=== PATIENT | female | born 1985 | race American Indian/Alaskan Native ===

== ENCOUNTER 2017-07-21 06:06 | Emergency (ER) | payer SELFPAY ==
--- NOTE | 2017-07-21 08:25 | Emergency Department Report ---
ED General Adult HPI - General Chief complaint: Urogenital-Female Stated complaint: BREAST PAIN Time Seen by Provider: 07/21/17 07:39 Source: patient Mode of arrival: Ambulatory Limitations: No Limitations - History of Present Illness Initial comments: This is a 32-year-old female nontoxic, well nourished in appearance, no acute signs of distress presents to the ED with c/o of left breast pain. Patient stated she is currently breast-feeding for the last 10 months and then developed a lump in the alveolar region with painful breasts. Patient denies any discharge of the breast, fever, chills, nausea, vomiting, headache, stiff neck, numbness, tingling, chest pain or shortness of breath. Patient denies any allergies or significant past medical history. She stated that she had a normal mammogram last year. MD Complaint: left breast pain -: week(s) (1) Radiation: non-radiation Severity scale (0 -10): 8 Quality: aching Consistency: constant Improves with: none Worsens with: none Associated Symptoms: denies other symptoms. denies: confusion, chest pain, cough, diaphoresis, fever/chills, headaches, loss of appetite, malaise, nausea/ vomiting, rash, seizure, shortness of breath, syncope, weakness Treatments Prior to Arrival: none - Related Data Previous Rx's Medication Instructions Recorded Last Taken Type Acetaminophen 500 mg PO Q8H PRN #30 tablet 07/21/17 Unknown Rx Clindamycin [Clindamycin CAP] 300 mg PO Q8H 7 Days cap 07/21/17 Unknown Rx Allergies Allergy/AdvReac Type Severity Reaction Status Date / Time No Known Allergies Allergy Unverified 07/21/17 06:31 ED Review of Systems ROS: Stated complaint: BREAST PAIN Other details as noted in HPI Constitutional: denies: chills, fever Eyes: denies: eye pain, eye discharge, vision change ENT: denies: ear pain, throat pain Respiratory: denies: cough, shortness of breath, wheezing Cardiovascular: denies: chest pain, palpitations Endocrine: no symptoms reported Gastrointestinal: denies: abdominal pain, nausea, diarrhea Genitourinary: denies: urgency, dysuria, discharge Musculoskeletal: denies: back pain, joint swelling, arthralgia Skin: denies: rash, lesions Neurological: denies: headache, weakness, paresthesias Psychiatric: denies: anxiety, depression Hematological/Lymphatic: denies: easy bleeding, easy bruising ED Past Medical Hx - Past Medical History Previous Medical History?: No - Surgical History Additional Surgical History: abd surgery - Social History Smoking Status: Never Smoker Substance Use Type: None - Medications Home Medications: Home Medications Medication Instructions Recorded Confirmed Last Taken Type Acetaminophen 500 mg PO Q8H PRN #30 tablet 07/21/17 Unknown Rx Clindamycin [Clindamycin CAP] 300 mg PO Q8H 7 Days cap 07/21/17 Unknown Rx ED Physical Exam - General Limitations: No Limitations General appearance: alert, in no apparent distress - Head Head exam: Present: atraumatic, normocephalic - Eye Eye exam: Present: normal appearance Pupils: Present: normal accommodation - ENT ENT exam: Present: normal exam, mucous membranes moist - Neck Neck exam: Present: normal inspection, full ROM. Absent: tenderness, meningismus - Respiratory Respiratory exam: Present: normal lung sounds bilaterally. Absent: respiratory distress, wheezes, rales, rhonchi, stridor, chest wall tenderness, accessory muscle use, decreased breath sounds, prolonged expiratory - Cardiovascular Cardiovascular Exam: Present: regular rate, normal rhythm, normal heart sounds. Absent: bradycardia, tachycardia, irregular rhythm, systolic murmur, diastolic murmur, rubs, gallop - GI/Abdominal GI/Abdominal exam: Present: soft, normal bowel sounds. Absent: distended, tenderness, guarding, rebound, rigid, diminished bowel sounds - Rectal Rectal exam: Present: deferred - Extremities Exam Extremities exam: Present: normal inspection, full ROM, normal capillary refill - Back Exam Back exam: Present: normal inspection, full ROM - Neurological Exam Neurological exam: Present: alert, oriented X3, normal gait - Psychiatric Psychiatric exam: Present: normal affect, normal mood - Skin Skin exam: Present: warm, dry, intact, normal color. Absent: rash - Other Other exam information: Left breast tender to touch. About 2 cm nodular swelling to the alveolar breast. No induration or fluctuance. No surrounding cellulitis or redness. ED Course Vital Signs 07/21/17 06:26 Temperature 98.5 F Pulse Rate 89 Blood Pressure 113/74 O2 Sat by Pulse 98 Oximetry - Reevaluation(s) Reevaluation #1: 07/21/17 08:24 Patient is speaking in full sentences with no signs of distress noted. ED Medical Decision Making - Medical Decision Making This is a 32-year-old female that presents with Lactational mastitis. Patient is stable and was examined by me. Patient received Tylenol in the ED as well as discharge. I will treat patient apparently with clindamycin. I also educated patient how to avoid these problems in the future. Patient was also instructed to apply warm compresses to the breast. Patient was referred to Follow-up with a primary care doctor in 3-5 days or if symptoms worsen and continue return to emergency room as soon as possible. At time of discharge, the patient does not seem toxic or ill in appearance. No acute signs of distress noted. Patient agrees to discharge treatment plan of care. No further questions noted by the patient. Critical care attestation.: If time is entered above; I have spent that time in minutes in the direct care of this critically ill patient, excluding procedure time. ED Disposition Clinical Impression: Nonpurulent mastitis associated with Disposition: [id number] TO HOME OR SELFCARE Is pt being admited?: No Does the pt Need Aspirin: No Condition: Stable Instructions: Mastitis (ED), Clindamycin (By mouth) Additional Instructions: Follow-up with a primary care doctor in 3-5 days or if symptoms worsen and continue return to emergency room as soon as possible. Prescriptions: Acetaminophen 500 mg PO Q8H PRN #30 tablet PRN Reason: Pain Clindamycin [Clindamycin CAP] 300 mg PO Q8H 7 Days cap Referrals: PRIMARY CARE, [Primary Care Provider] - 3-5 Days NOHEMI CAN MD [Staff Physician] - 3-5 Days [facility] [Outside] - 3-5 Days [facility] [Outside] - 3-5 Days Forms: Work/School Release Form(ED)
[2017-07-21] MEDS ORDERED: TYLENOL ONE (08:33)
[2017-07-21] MEDS ORDERED: TYLENOL PO ONE (08:33)
[2017-07-21 08:49] VITALS: BP 99/66
== END 2017-07-21 08:50 | disposition home or self-care (01) ==
LOC: ED 06:06
DX: O91.23 Nonpurulent mastitis associated with lactation (principal)
CPT/HCPCS: 99282

== ENCOUNTER 2017-09-16 14:34 | Emergency (ER) | payer OTHER ==
[2017-09-16 15:23] LABS: Bilirubin,Urine NEG (Negative); Blood,Urine NEG (Negative); Color,Urine Yellow (Yellow); Mucus,Urine 3+ /HPF
[2017-09-16 15:24] LABS: HCG Qualitative,Urine Negative (Negative)
[2017-09-16] MEDS ORDERED: CATAPRES PO ONE (16:31)
--- NOTE | 2017-09-16 16:46 | Emergency Department Report ---
ED Abdominal Pain HPI - General Chief Complaint: Abdominal Pain Stated Complaint: STOMACH PAINS Time Seen by Provider: 09/16/17 16:27 Source: patient Mode of arrival: Ambulatory Limitations: No Limitations - History of Present Illness Initial Comments: Patient is a 32-year-old female who is presenting with several days of epigastric discomfort. Patient states that is worse in the morning as a burning sensation. Sometimes she feels as though as he comes into her throat feels as though she did not vomit. Patient also states pain is slightly worse after she eats. The patient does have a history of ulcer diagnosed in [place] but she has not had a GI visit and said several years. Patient states her pain is 6 out of 10 in severity and radiates to the back. Patient denies any fevers chills vomiting diarrhea. - Related Data Previous Rx's Medication Instructions Recorded Last Taken Type Acetaminophen 500 mg PO Q8H PRN #30 tablet 07/21/17 Unknown Rx Clindamycin [Clindamycin CAP] 300 mg PO Q8H 7 Days cap 07/21/17 Unknown Rx Dicyclomine [Bentyl] 10 mg PO QID #15 capsule 09/16/17 Unknown Rx Ondansetron [Zofran Odt] 4 mg PO Q8HR PRN #10 tab.rapdis 09/16/17 Unknown Rx Pantoprazole [Protonix TAB] 20 mg PO DAILY #30 tablet. 09/16/17 Unknown Rx Sucralfate [Carafate] 1 gm PO Q6HR #60 tablet 09/16/17 Unknown Rx traMADol [Ultram] 50 mg PO Q6HR PRN #12 tablet 09/16/17 Unknown Rx Allergies Allergy/AdvReac Type Severity Reaction Status Date / Time No Known Allergies Allergy Verified 07/21/17 08:38 ED Review of Systems ROS: Stated complaint: STOMACH PAINS Other details as noted in HPI Comment: All other systems reviewed and negative ED Past Medical Hx - Past Medical History Previous Medical History?: Yes Hx GERD: Yes - Surgical History Past Surgical History?: Yes Additional Surgical History: abd surgery , 09-21-2016 - Social History Smoking Status: Never Smoker Substance Use Type: Alcohol, Non Opiate Pain, Prescribed - Medications Home Medications: Home Medications Medication Instructions Recorded Confirmed Last Taken Type Acetaminophen 500 mg PO Q8H PRN #30 tablet 07/21/17 Unknown Rx Clindamycin [Clindamycin CAP] 300 mg PO Q8H 7 Days cap 07/21/17 Unknown Rx Dicyclomine [Bentyl] 10 mg PO QID #15 capsule 09/16/17 Unknown Rx Ondansetron [Zofran Odt] 4 mg PO Q8HR PRN #10 tab.rapdis 09/16/17 Unknown Rx Pantoprazole [Protonix TAB] 20 mg PO DAILY #30 tablet.dr 09/16/17 Unknown Rx Sucralfate [Carafate] 1 gm PO Q6HR #60 tablet 09/16/17 Unknown Rx traMADol [Ultram] 50 mg PO Q6HR PRN #12 tablet 09/16/17 Unknown Rx ED Physical Exam - General Limitations: No Limitations General appearance: alert, in no apparent distress - Head Head exam: Present: atraumatic, normocephalic - Eye Eye exam: Present: normal appearance - ENT ENT exam: Present: mucous membranes moist - Neck Neck exam: Present: normal inspection - Respiratory Respiratory exam: Present: normal lung sounds bilaterally. Absent: respiratory distress, wheezes, rales, rhonchi - Cardiovascular Cardiovascular Exam: Present: regular rate, normal rhythm. Absent: systolic murmur, diastolic murmur, rubs, gallop - GI/Abdominal GI/Abdominal exam: Present: soft, tenderness (mild tenderness in the epigastrium. Patient has no right upper quadrant pain.), normal bowel sounds. Absent: distended, guarding, rebound - Extremities Exam Extremities exam: Present: normal inspection - Back Exam Back exam: Present: normal inspection - Neurological Exam Neurological exam: Present: alert, oriented X3 - Psychiatric Psychiatric exam: Present: normal affect, normal mood - Skin Skin exam: Present: warm, dry, intact, normal color. Absent: rash ED Course Vital Signs 09/16/17 14:36 Temperature 97.6 F Pulse Rate 75 Respiratory 20 Rate Blood Pressure 106/63 O2 Sat by Pulse 98 Oximetry ED Medical Decision Making - Medical Decision Making Patient states she has been taking [id number] omeprazole. Patient be switched to Protonix also been added Carafate to her regimen and Ultram. Patient will referred to GI. Critical care attestation.: If time is entered above; I have spent that time in minutes in the direct care of this critically ill patient, excluding procedure time. ED Disposition Clinical Impression: PUD (peptic ulcer disease) GERD (gastroesophageal reflux disease) Qualifiers: Esophagitis presence: esophagitis presence not specified Qualified Code(s): K21.9 - Gastro-esophageal reflux disease without esophagitis Disposition: TO HOME OR SELFCARE Is pt being admited?: No Does the pt Need Aspirin: No Condition: Stable Instructions: Gastroesophageal Reflux in Children (ED), Diet for Ulcers and Gastritis (ED) Prescriptions: Pantoprazole [Protonix TAB] 20 mg PO DAILY #30 tablet. Sucralfate [Carafate] 1 gm PO Q6HR #60 tablet Referrals: EPI KASPER MD [Staff Physician] - 3-5 Days
[2017-09-16 16:56] VITALS: BP 106/52
== END 2017-09-16 16:54 | disposition home or self-care (01) ==
LOC: ED 14:34
DX: K21.9 Gastro-esophageal reflux disease without esophagitis (principal); K27.9 Peptic ulcer, site unspecified, unspecified as acute or chronic, without hemorrhage or perforation
CPT/HCPCS: 81001; 81025; 99283